=== PATIENT | male | born 1945 | race Caucasian/White ===

== ENCOUNTER → 2020-10-05 | Outpatient (CLI) | payer MEDICARE, BC | LOC: COL.RAD 09:33 | DX: G31.9 Degenerative disease of nervous system, unspecified (principal) ==

== ENCOUNTER 2020-10-22 06:23 | Day surgery (SDC) | payer MEDICARE, BC ==
[2020-10-22] VITALS (12 sets, daily range): BP systolic 93–137; BP diastolic 59–69; PULSE 50–65; TEMP 98.1–98.8
[~2020-10-22] VITALS: Ht 188.1 cm; Wt 107.0 kg
[2020-10-22 07:30] LABS: BILIRUBIN,TOTAL 0.5 mg/dL (0.0-1.0); CALCIUM 9.1 mg/dL (8.4-10.2); CREATININE, serum 0.88 (0.66-1.25); HEMATOCRIT 38.6 % (42.0-52.0); HEMOGLOBIN 12.6 g/dl (13.5-18.0); MAGNESIUM 2.1 mg/dL (1.6-2.3); MEAN CELL VOLUME 93 fl (80.0-100.0); MEAN CORPUSCULAR HEMOGLOBIN 30 pg (27.0-31.0); MEAN CORPUSCULAR HGB CONC 33 g/dl (33.0-37.0); PLATELET COUNT 162 K/mm3 (130-400); RED BLOOD COUNT 4.17 M/mm3 (4.20-5.60); REDCELL DISTRIBUTION WIDTH-CV 13.5 % (11.5-14.5); TOTAL PROTEIN 6.8 gm/dL (6.4-8.2)
[2020-10-22 07:31] LABS: INR 1.4 (0.8-3.0); PROTHROMBIN TIME 15.5 SECONDS (9.7-12.8)
[2020-10-22] MEDS ORDERED: ELIQUIS 5MG PO (07:44)
[2020-10-22] MEDS ORDERED: FLOMAX 0.40.4 MG/CAP PO (07:46)
[2020-10-22] MEDS ORDERED: PLAVIX 75MG TAB75 MG PO (07:46)
[2020-10-22] MEDS ORDERED: CARDIZEM 90MG T90 MG PO (07:47)
[2020-10-22] MEDS ORDERED: SYNTHROID 0.10.15 MG PO (07:47)
[2020-10-22] MEDS ORDERED: LIPITOR20 MG PO (07:48)
[2020-10-22] MEDS ORDERED: ZOLOFT 50MG50 MG PO (07:48)
[2020-10-22] MEDS ORDERED: NEURONTIN300 MG/CAP PO (07:49)
[2020-10-22] MEDS ORDERED: K-TAB20 PO (07:49)
[2020-10-22] MEDS ORDERED: lovenox IJ (07:51)
--- NOTE | 2020-10-22 09:00 | NUR ---
Pt to procedure.
--- NOTE | 2020-10-22 09:12 | NUR ---
SEE MERGE DOCUMENTATION FOR MEDICATION ADMINISTRATION TIMES AND INTRA/POST PROCEDURE SEDATION ASSESSMENTS.
--- NOTE | 2020-10-22 11:00 | NUR ---
PATIENT ARRIVED TO ROOM 358 POST PROCEDURE. PATIENT IS AWAKE. POST-OP VSS. LEFT CHEST PACEMAKER SITE AND LOOP RECORDER EXPLANT SITE ARE BOTH CD&I AND DRESSED WITH A GAUZE AND PAPER TAPE DRESSING. CMS INTACT. CAP REFILL <3 SECONDS. SLING TO LEFT ARM. ICE PACK IN PLACE. PATIENT DENIES PAIN AT THIS TIME. TELE IN PLACE. CALL LIGHT WITHIN REACH. NO OTHER NEEDS AT THIS TIME.
--- NOTE | 2020-10-22 16:58 | NUR ---
PATIENT GIVEN PRN TYLENOL FOR ARTHRITIC PAIN. PATIENT DENIES ANY OTHER NEEDS AT THIS TIME.
--- NOTE | 2020-10-22 18:20 | NUR ---
PATIENT CALLED OUT TO THE DESK. FOREST TECHNICIAN UNABLE TO UNDERSTAND PATIENT. UPON ENTRY TO THE ROOM THIS NURSE FOUND THE PATIENTS LEFT SIDE OF HIS GOWN ON THE CHEST WAS SATURATED IN BLOOD. PATIENT REPORTS THAT HE WAS EATING HIS DINNER, HAD SOME INCREASE IN PAIN IN THE LEFT INCISION SITE. THEN FELT SOMETHING ROLLING DOWN HIS ARM AND SAW THE BLOOD ON HIS GOWN AND CALLED OUT. PATIENT GOWN AND SLING REMOVED. EXCESS BLOOD CLEANED UP. PACEMAKER SITE SATURATED IN BLOOD. LOOP RECORDER EXPLANT SITE CD&I. PACEMAKER SITE DRESSING REINFORCED WITH ABD PAD AND OCCLUSIVE FOAM TAPE PRESSURE DRESSING. PATIENT IN NEW GOWN. SLING REAPPLIED. ICE PACK TO PACER SITE. CALLED AND NOTIFIED. TORB TO HOLD EVENING DOSE OF ELIQUIS, GIVE PLAVIX FROM TO THIS NURSE.
--- NOTE | 2020-10-22 19:30 | NUR ---
RECEIVED CHANGE OF SHIFT REPORT FROM DAY SHIFT NURSE.
--- NOTE | 2020-10-22 20:00 | NUR ---
PRESSURE DRSG WITH ICE TO LEFT SHOULDER/PACEMAKER DRSG WITH NO ACTIVE BLEEDING/DRAINAGE OBSERVED AT THIS TIME. PATIENT DENIES CHEST PAIN/SHORTNESS OF BREATH/NAUSEA OR INCISION PAIN AT THIS TIME. SLING TO LUE IN PLACE. TELE IN PLACE. PATIENT DENIES ANY NEEDS CURRENTLY.
--- NOTE | 2020-10-22 22:25 | NUR ---
PATIENT BLEEDING FROM PACERMAKER SITE, BEFORE, PATIENT DENIES CHEST PAIN, VS WNL (FROM EARLIER ROUNDS) AND DENIES SHORTNESS OF BREATH/DIZZINESS. DR WATT INFORMED, WITH ORDERS GIVEN TO APPLY PRESSURE FOR 15 MIN.
--- NOTE | 2020-10-23 00:09 | NUR ---
I contacted , as patient continues to bleed from pacermaker site. This RN reviewed time frame from onset of bleeding and manual pressure at 2219 to applying the 10lb weight, then redressing the bleeding site and changing from the 10lb bag to the 5lb weight to the current situation of gauze in the axilla being saturated with blood. Dr. Calvo states RN needs to hold more presssure to the site. Instructs RN to hold manual pressure to the site for 30 minutes then apply 10lb bag for an hour then reassess.
--- NOTE | 2020-10-23 00:52 | NUR ---
PATIENT STILL HAVING BLOOD OOZING FROM PACEMAKER INCISION, DR WATT INFORMED BY CHARGE NURSE W/ORDER FOR 30 MIN MANUAL PRESSURE FOLLOWED BY 60MIN 10# SANDBAG, SANDBAG APPLIED AFTER ALLOTED 30 MIN MANUAL PRESSURE WITH PATIENT TOLERATING TREATMENT AT THIS TIME WITH NO C/O CURRENTLY.
[2020-10-23 01:34] VITALS: BP 142/83; PULSE 71; TEMP 98.3
--- NOTE | 2020-10-23 02:00 | NUR ---
Patient's pacermaker site reassessed after manual pressure on site for 30 minutes and 10lb bag on site for an hour. Dressing to site changed at this time, ABD pad saturated, site continues to bleed into axilla. Manual pressure held on site, site redressed with ABD pads and 10lb bag. notified site still bleeding. Recommends holding additional pressure to site. States he will come in to assess patient per this RN request.
--- NOTE | 2020-10-23 02:42 | NUR ---
DR WATT PRESENT/EVALUATED PACEMAKER SITE W/SURGICAL DRSG CHANGE BY DR WATT-PRESSURE APPLIED TO INCISION W/ACTIVE BLOOD OOZING OBSERVED BY DR WATT. NEW PRESSURE DRSG APPLIED AND 5# SANDBAG APPLIED PER DR WATT ORDER X60 MIN.
[2020-10-23 04:29] VITALS: BP 123/69; PULSE 60; TEMP 98.3
[2020-10-23 06:27] LABS: HEMOGLOBIN 11.9 g/dl (13.5-18.0); MEAN CELL VOLUME 93 fl (80.0-100.0); MEAN CORPUSCULAR HEMOGLOBIN 31 pg (27.0-31.0); MEAN CORPUSCULAR HGB CONC 33 g/dl (33.0-37.0); MEAN PLATELET VOLUME 11.7 fl (7.4-10.4); PLATELET COUNT 152 K/mm3 (130-400); RED BLOOD COUNT 3.85 M/mm3 (4.20-5.60); REDCELL DISTRIBUTION WIDTH-CV 13.5 % (11.5-14.5)
[2020-10-23 06:29] LABS: HEMATOCRIT 35.8 % (42.0-52.0)
[2020-10-23 06:39] LABS: ALBUMIN 3.8 gm/dL (3.5-5.0); BILIRUBIN,TOTAL 0.7 mg/dL (0.0-1.0); CALCIUM 8.8 mg/dL (8.4-10.2); CREATININE, serum 0.85 (0.66-1.25); TOTAL PROTEIN 6.6 gm/dL (6.4-8.2)
[2020-10-23 06:49] LABS: BAND 3 % (0-10); LYMPHOCYTE 19 % (20.0-51.0); NEUTROPHILS 69 % (42.0-75.2); PLATELET ESTIMATE NORMAL (NORMAL)
--- NOTE | 2020-10-23 07:28 | NUR ---
Change of shift report given to day shift nurseLakshmi.
[2020-10-23 07:48] VITALS: BP 127/68; PULSE 68; TEMP 98.1
--- NOTE | 2020-10-23 08:00 | NUR ---
Patient resting in bedside recliner at this time. Patient is alert and oriented, indepenent in the room. Dressing to left chest is CDI. Patient denies pain or needs, call light within reach.
--- NOTE | 2020-10-23 09:34 | NUR ---
SIRI and manager internship, Marian, met with the patient to discuss discharge plan. The patient lives alone in [place]. He states that his daughter, Mali (ph#[phone]), also lives in [place]. He reports independence with ADLs and has a cane, walker, and wheelchair. The patient's PCP is Dr. Taar Ceballos and he receives his medications from [facility]. He reports occasional difficulties affording his Eliquis. He states that his PCP has sometimes been able to provide free samples to his late . He states that he also plans to look into assistance programs on the drugs website. The patient does not have a DPOA-HC in EMR, but he states that he does have one completed and that [place] is his DPOA-HC. The patient has two children: Mali and Glenn. The patient plans to return home upon discharge. No additional needs at this time.
[2020-10-23] MEDS ORDERED: CEPHALEXIN500 M1 PO (11:38)
--- NOTE | 2020-10-23 11:46 | NUR ---
First visit from the airplane navigator. No needs right now.
--- NOTE | 2020-10-23 12:50 | NUR ---
Discharge teaching completed. Discussed follow up appointment, discharge instructions, and discharge medicaitons. Patient verbalized understanding and denies questions or concerns. INT removed, catheter intact, hemostasis achieved. Patient escorted to admissions entrance where he entered a private vehicle.
== END 2020-10-23 12:53 | disposition home or self-care (01) ==
LOC: COL.CAR 06:23 → MEDICAL 11:07 → COL.CAR 10-23 12:53
PROVIDERS: Internal Medicine Cardiovascular Disease
DX: I49.5 Sick sinus syndrome (principal); I48.0 Paroxysmal atrial fibrillation; I97.610 Postprocedural hemorrhage of a circulatory system organ or structure following a cardiac catheterization; Z20.828 Contact with and (suspected) exposure to other viral communicable diseases; Z79.02 Long term (current) use of antithrombotics/antiplatelets; I10 Essential (primary) hypertension; I34.0 Nonrheumatic mitral (valve) insufficiency; I36.1 Nonrheumatic tricuspid (valve) insufficiency; I25.10 Atherosclerotic heart disease of native coronary artery without angina pectoris; G47.33 Obstructive sleep apnea (adult) (pediatric); I48.91 Unspecified atrial fibrillation; Z79.01 Long term (current) use of anticoagulants; E78.5 Hyperlipidemia, unspecified; Z86.711 Personal history of pulmonary embolism; E66.9 Obesity, unspecified; Z68.29 Body mass index [BMI] 29.0-29.9, adult; Z79.899 Other long term (current) drug therapy; Z86.73 Personal history of transient ischemic attack (TIA), and cerebral infarction without residual deficits
CPT/HCPCS: OP; J0690; J2250; J3010; J7030

== ENCOUNTER → 2021-09-30 | Outpatient (CLI) | payer MEDICARE, BC ==
[~2021-09-30] MED LIST: CARDIZEM 90MG T90 MG PO; CEPHALEXIN500 M1 PO; ELIQUIS 5MG PO; FLOMAX 0.40.4 MG/CAP PO; K-TAB20 PO; LIPITOR20 MG PO; NEURONTIN300 MG/CAP PO; PLAVIX 75MG TAB75 MG PO; SYNTHROID 0.10.15 MG PO; ZOLOFT 50MG50 MG PO; lovenox IJ
== END ==
LOC: COL.RAD 09:12
DX: M51.26 Other intervertebral disc displacement, lumbar region (principal); M48.061 Spinal stenosis, lumbar region without neurogenic claudication; M47.816 Spondylosis without myelopathy or radiculopathy, lumbar region